=== PATIENT | male | born 1935 | race African-American/Black ===

== ENCOUNTER 2021-09-10 09:37 | Inpatient (IN) | payer OTHER ==
[~2021-09-10] VITALS: Ht 185.4 cm; Wt 80.3 kg
[2021-09-10] MEDS ORDERED: IOHEXOL 350 MG/ML 150 ML VIAL ONE (09:51)
[2021-09-10] MEDS ORDERED: SODIUM CHLORIDE 0.9% 100 ML ONE (09:51)
[2021-09-10 10:11] LABS: BASOPHILS % (AUTO) 0.8 % (0.0-2.0); EOSINOPHILS % (AUTO) 8.3 % (1.0-6.0); HEMATOCRIT 38.8 % (41-53); HEMOGLOBIN 12.6 g/dL (13.5-17.5); LYMPHOCYTES # (AUTO) 2.3 K/uL (1.0-4.8); LYMPHOCYTES % (AUTO) 26.3 % (22.0-44.0); MEAN CORPUSCULAR HEMOGLOBIN 25.5 pg (26.0-34.0); MEAN CORPUSCULAR HGB CONC 32.4 G/dL (31.0-37.0); MEAN CORPUSCULAR VOLUME 79 fL (80-100); MONOCYTES # (AUTO) 0.6 K/uL (0.1-1.0); MONOCYTES % (AUTO) 6.8 % (2.0-9.0); NEUTROPHILS # (AUTO) 5.1 K/uL (1.8-7.7); NEUTROPHILS % (AUTO) 57.8 % (40.0-70.0); PLATELET COUNT (AUTO) 215 K/uL (150-450); RED BLOOD CELL COUNT(AUTO) 4.93 MIL/uL (4.50-5.90); RED CELL DISTRIBUTION WIDTH 16.7 % (11.5-14.5)
[2021-09-10 10:15] LABS: ANION GAP 6 mmol/L (8-16); CALCIUM, TOTAL 9.2 mg/dL (8.8-10.5); CARBON DIOXIDE 30 mmol/L (22-29); CHLORIDE 107 mmol/L (98-107); CREATININE 0.95 mg/dL (0.60-1.30); GLUCOSE,RANDOM 108 mg/dL (70-110); POTASSIUM 3.9 mmol/L (3.5-5.1); SODIUM SERUM 143 mmol/L (136-145); UREA NITROGEN, BLOOD 13 mg/dL (7-18)
[2021-09-10 10:16] LABS: GLOMERULAR FILTR. RATE CALC > 60 mL/min (>60)
[2021-09-10 10:20] LABS: INR 1.1 (0.9-1.1); PROTHROMBIN TIME 12.1 SEC (9.4-11.6)
[2021-09-10 10:21] LABS: ALANINE AMINOTRANSFERASE 19 U/L (12-78); ALBUMIN 3.6 g/dL (3.4-5.0); ALKALINE PHOSPHATASE 87 U/L (46-116); ASPARTATE AMINOTRANSFERASE 13 U/L (15-37); BILIRUBIN,TOTAL 0.8 mg/dL (0.1-1.0); TOTAL PROTEIN, SERUM 7.5 g/dL (6.4-8.2)
[2021-09-10 10:33] LABS: COVID AG,FIA SOURCE NASOPHARYNGEAL
[2021-09-10] MEDS ORDERED: LORazepam 2 MG/ML VIAL ONE (10:33)
[2021-09-10] MEDS ORDERED: LevETIRAcetam 1,000 MG in DEXTROSE 5%-WATER 100 ML IV ONE (10:45)
[2021-09-10] MEDS ORDERED: LORazepam 2 MG/ML VIAL IVP ONE (10:45)
[2021-09-10] MEDS ORDERED: ONDANSETRON HCL 4 MG/2 ML VIAL IVP PRN ×2 (11:00→13:45)
[2021-09-10] MEDS ORDERED: ACETAMINOPHEN 325 MG TABLET PO PRN (11:00)
[2021-09-10] MEDS ORDERED: DEXTROSE 5%-0.45% SODIUM CHL 1,000 ML IV ONE (13:45)
[2021-09-10] MEDS ORDERED: MAGNESIUM HYDROXIDE SUSPENSION 30 ML UDCUP PO PRN (13:45)
[2021-09-10] MEDS ORDERED: BISACODYL 10 MG RECTAL RECTAL SUPPOSITORY PR PRN (13:45)
[2021-09-10] MEDS ORDERED: ALBUTEROL SULFATE 2.5 MG/0.5 ML NEB SOLUTION NEB PRN (13:45)
[2021-09-10] MEDS ORDERED: IPRATROPIUM BROMIDE 0.5 MG/2.5 ML NEB SOLUTION NEB PRN (13:45)
[2021-09-10] MEDS ORDERED: ZOLPIDEM TARTRATE 5 MG TABLET PO PRN (13:45)
[2021-09-10] MEDS: ETHYL ALCOHOL 62% ANTISEPTIC NASAL INHALANT 0.6 ML AMPUL NASAL SCH (22:11)
[2021-09-10] MEDS: LevETIRAcetam 500 MG in DEXTROSE 5%-WATER 100 ML IV SCH (23:21)
[2021-09-11 00:50] VITALS: BP 142/101
[2021-09-11 04:30] VITALS: BP 145/89
[2021-09-11 08:00] VITALS: BP 141/81
[2021-09-11] MEDS: PANTOPRAZOLE SODIUM 40 MG/VIAL IVP SCH (08:58)
[2021-09-11] MEDS: ETHYL ALCOHOL 62% ANTISEPTIC NASAL INHALANT 0.6 ML AMPUL NASAL SCH ×2 (08:58→20:53)
[2021-09-11 10:55] LABS: ANION GAP 12 mmol/L (8-16); CALCIUM, TOTAL 9.4 mg/dL (8.8-10.5); CARBON DIOXIDE 28 mmol/L (22-29); CHLORIDE 105 mmol/L (98-107); GLUCOSE,RANDOM 122 mg/dL (70-110); POTASSIUM 4.2 mmol/L (3.5-5.1); SODIUM SERUM 145 mmol/L (136-145); UREA NITROGEN, BLOOD 9 mg/dL (7-18)
[2021-09-11 10:56] LABS: GLOMERULAR FILTR. RATE CALC > 60 mL/min (>60)
[2021-09-11 11:05] LABS: BASOPHILS % (AUTO) 0.7 % (0.0-2.0); EOSINOPHILS % (AUTO) 3.1 % (1.0-6.0); HEMATOCRIT 39.5 % (41-53); HEMOGLOBIN 12.9 g/dL (13.5-17.5); LYMPHOCYTES # (AUTO) 1.7 K/uL (1.0-4.8); LYMPHOCYTES % (AUTO) 16.6 % (22.0-44.0); MEAN CORPUSCULAR HEMOGLOBIN 25.9 pg (26.0-34.0); MEAN CORPUSCULAR HGB CONC 32.7 G/dL (31.0-37.0); MEAN CORPUSCULAR VOLUME 79 fL (80-100); MONOCYTES # (AUTO) 0.6 K/uL (0.1-1.0); MONOCYTES % (AUTO) 6.3 % (2.0-9.0); NEUTROPHILS # (AUTO) 7.6 K/uL (1.8-7.7); NEUTROPHILS % (AUTO) 73.3 % (40.0-70.0); PLATELET COUNT (AUTO) 215 K/uL (150-450); RED BLOOD CELL COUNT(AUTO) 4.99 MIL/uL (4.50-5.90); RED CELL DISTRIBUTION WIDTH 16.7 % (11.5-14.5)
[2021-09-11] MEDS: LevETIRAcetam 500 MG in DEXTROSE 5%-WATER 100 ML IV SCH (11:25)
[2021-09-11 12:17] VITALS: BP 145/78
[2021-09-11 16:33] VITALS: BP 133/83
[2021-09-11 20:00] VITALS: BP 131/109
[2021-09-11] MEDS ORDERED: SODIUM CHLORIDE 0.9% 250 ML IV ONE (22:58)
[2021-09-12] VITALS: BP 130/69
[2021-09-12 04:00] VITALS: BP 146/64
[2021-09-12 05:39] LABS: CHOL/HDL RATIO 2.8 (4.2-7.3)
[2021-09-12 08:00] VITALS: BP 153/84
[2021-09-12] MEDS: ETHYL ALCOHOL 62% ANTISEPTIC NASAL INHALANT 0.6 ML AMPUL NASAL SCH ×2 (08:11→20:46)
[2021-09-12] MEDS: LevETIRAcetam 500 MG TABLET PO SCH ×2 (08:11→20:46)
[2021-09-12] MEDS: PANTOPRAZOLE SODIUM 40 MG/VIAL IVP SCH (08:11)
[2021-09-12 16:04] VITALS: BP 145/88
[2021-09-12 19:30] VITALS: BP 147/71
[2021-09-12 23:35] VITALS: BP 149/90
[2021-09-13 03:45] VITALS: BP 130/45
[2021-09-13 07:33] VITALS: BP 122/67
[2021-09-13] MEDS: ETHYL ALCOHOL 62% ANTISEPTIC NASAL INHALANT 0.6 ML AMPUL NASAL SCH (08:05)
[2021-09-13] MEDS: LevETIRAcetam 500 MG TABLET PO SCH (08:05)
[2021-09-13] MEDS: PANTOPRAZOLE SODIUM 40 MG/VIAL IVP SCH (08:06)
[2021-09-13] MEDS ORDERED: ATORVASTATIN CALCIUM 20 MG TABLET PO SCH (09:00)
[2021-09-13] MEDS ORDERED: OMEPRAZOLE 20 MG CAPSULE PO SCH (09:00)
[2021-09-13] MEDS ORDERED: FINASTERIDE 5 MG TABLET PO ONE (09:00)
[2021-09-13] MEDS ORDERED: DILTIAZEM HCL CD 120 MG ER CAPSULE PO ONE (09:00)
[2021-09-13] MEDS ORDERED: OMEP20 PO (10:47)
[2021-09-13] MEDS ORDERED: FINA-27 PO (10:47)
[2021-09-13] MEDS ORDERED: ATOR10TA84 PO (10:47)
[2021-09-13] MEDS ORDERED: DILT60TA4 PO (10:47)
[2021-09-13 11:29] VITALS: BP 132/73
[2021-09-14] MEDS ORDERED: FINASTERIDE 5 MG TABLET PO SCH (09:00)
== END 2021-09-13 15:40 | disposition home health service (06) | DRG 64 ==
LOC: EMS 09:37 → ICU 20:25 → 5S 09-12 10:38
PROVIDERS: ADMIT Hospitalist; ATTEND Hospitalist
DX: I62.02 Nontraumatic subacute subdural hemorrhage (principal); I63.9 Cerebral infarction, unspecified; R29.710 NIHSS score 10; I25.10 Atherosclerotic heart disease of native coronary artery without angina pectoris; I10 Essential (primary) hypertension; R56.9 Unspecified convulsions; Z20.822 Contact with and (suspected) exposure to COVID-19; I48.91 Unspecified atrial fibrillation; Z96.659 Presence of unspecified artificial knee joint; G83.21 Monoplegia of upper limb affecting right dominant side; R47.81 Slurred speech; R29.810 Facial weakness; I73.9 Peripheral vascular disease, unspecified; Y99.8 Other external cause status; Z88.0 Allergy status to penicillin
CPT/HCPCS: 70496; 70551; 71045; 80048; 80053; 80061; 84484; 85025; 85610; 87081; 92610; 93005; 93880; 95816; 97116; 97163; 97166; 97530; 97535; 99291; C9113; G0378; J0712; J2060; J7050; J7060; Q9967; 36415-L1; 36415-TC; 70450; 70450-TC